=== PATIENT | female | born 1975 | race Caucasian/White ===

== ENCOUNTER 2017-12-05 11:43 | Outpatient (REF) | payer MEDICAID, SELFPAY ==
[2017-12-05 20:14] LABS: C-Reactive Protein 2.21 mg/dL (0.0-0.3)
[2017-12-05 20:38] LABS: Vitamin D 25 Total 25.4 ng/ml (30-100)
[2017-12-05 20:49] LABS: ESR 33 MM/HR (0-20)
[2017-12-08 17:13] LABS: ANA Interpretation Negative (NEGAT)
== END 2017-12-05 11:44 ==
LOC: NCHCN 11:43
PROVIDERS: PCP Family Medicine; Visit Provider Registered Nurse
DX: E55.9 Vitamin D deficiency, unspecified (principal); M25.50 Pain in unspecified joint
CPT/HCPCS: 82306; 85652; 86038; 86140

== ENCOUNTER 2018-11-17 12:30 | Outpatient (REF) | payer MEDICAID, SELFPAY ==
[2018-11-17 22:34] LABS: ALT 24 U/L (12-78); AST 16 U/L (15-37); Albumin 3.6 g/dL (3.4-5.0); Alkaline Phosphatase 96 U/L (46-116); BUN 16 mg/dL (7-18); Bilirubin, Total 0.2 mg/dL (0.2-1.0); CREATININE 0.75 mg/dL (0.55-1.02); Calcium 9.7 mg/dL (8.5-10.1); Chloride 106 mmol/L (98-107); Glucose 95 mg/dL (70-100); Potassium 4.7 mmol/L (3.5-5.1); Sodium 143 mmol/L (136-145); Total Protein 7.4 g/dL (6.4-8.2)
[2018-11-17 22:52] LABS: Hemoglobin A1C 5.7 % (4.5-6.2)
== END 2018-11-17 12:50 ==
LOC: NCHCN 12:30
PROVIDERS: PCP Family Medicine; Visit Provider Registered Nurse
DX: R73.03 Prediabetes (principal); F43.20 Adjustment disorder, unspecified; Z79.899 Other long term (current) drug therapy
CPT/HCPCS: 80053; 83036

== ENCOUNTER 2019-02-10 10:48 | Outpatient (REF) | payer MEDICAID, SELFPAY ==
[2019-02-12 13:54] LABS: Chlamydia Result Negative; GC Result Negative; Specimen Description URINE
== END 2019-02-10 11:08 ==
LOC: NCHCN 10:48
PROVIDERS: PCP Family Medicine; Visit Provider Registered Nurse
DX: F41.8 Other specified anxiety disorders (principal); E66.9 Obesity, unspecified; Z11.3 Encounter for screening for infections with a predominantly sexual mode of transmission
CPT/HCPCS: 87491; 87591

== ENCOUNTER 2020-12-28 12:12 | Outpatient (REF) | payer MEDICAID, SELFPAY ==
[2020-12-28 21:59] LABS: ALT 29 U/L (14-59); AST 21 U/L (15-37); Alkaline Phosphatase 126 U/L (46-116); Anion Gap 6.2 mmol/L (3-11); BUN 14 mg/dL (7-18); Bilirubin, Total 0.4 mg/dL (0.2-1.0); CO2 30.8 mmol/L (21.0-32.0); CREATININE 1.1 mg/dL (0.55-1.02); Calcium 9.1 mg/dL (8.5-10.1); Calculated LDL 137 mg/dL (<100); Chloride 104 mmol/L (98-107); Cholesterol 186 mg/dL (<200); Estimated GFR 53.47 (mL/min/1.73m2); Glucose 99 mg/dL (74-106); HDL Cholesterol 34 mg/dL (40-60); Potassium 4.5 mmol/L (3.5-5.1); Sodium 141 mmol/L (136-145); Total Protein 8.1 g/dL (6.4-8.2); Triglyceride 78 mg/dL (<150)
[2020-12-28 22:18] LABS: Vitamin D 25 Total 34.6 ng/mL (30-100)
== END 2020-12-28 12:13 | disposition home or self-care (01) ==
LOC: NCHCN 12:12
PROVIDERS: PCP Family Medicine; Visit Provider Registered Nurse
DX: E55.9 Vitamin D deficiency, unspecified (principal); E66.9 Obesity, unspecified; R73.03 Prediabetes; F41.8 Other specified anxiety disorders
CPT/HCPCS: 80053; 80061; 82306

== ENCOUNTER 2023-01-06 14:01 | Outpatient (REF) | payer MEDICAID, SELFPAY ==
[2023-01-06 15:31] LABS: Anion Gap 8.3 mmol/L (3-11); BUN 21 mg/dL (7-18); CO2 29.7 mmol/L (21.0-32.0); CREATININE 0.9 mg/dL (0.55-1.02); Calcium 10.1 mg/dL (8.5-10.1); Chloride 99 mmol/L (98-107); Estimated GFR 78.86 (mL/min/1.73m2); Glucose 107 mg/dL (74-106); Potassium 4.5 mmol/L (3.5-5.1); Sodium 137 mmol/L (136-145)
[2023-01-06 22:25] LABS: Rheumatoid Factor <8.6 IU/mL (<12.0)
[2023-01-07 09:58] LABS: Cyclic Citrullinated Peptide <2.5 U/mL (<5.0)
== END 2023-01-06 14:02 | disposition home or self-care (01) ==
LOC: NCHCN 14:01
PROVIDERS: PCP Family Medicine; Visit Provider Registered Nurse
DX: M13.89 Other specified arthritis, multiple sites (principal); M25.59 Pain in other specified joint; R94.4 Abnormal results of kidney function studies
CPT/HCPCS: 80048; 86200; 86431

== ENCOUNTER 2024-03-09 14:03 | Outpatient (REF) | payer MEDICAID, SELFPAY ==
[2024-03-09 14:41] LABS: Hemoglobin A1C 5.5 % (<5.7)
[2024-03-09 14:43] LABS: ALT 23 U/L (14-59); AST 26 U/L (15-37); Albumin 3.7 g/dL (3.4-5.0); Alkaline Phosphatase 136 U/L (46-116); Anion Gap 6.7 mmol/L (3-11); BUN 18 mg/dL (7-18); Bilirubin, Total 0.26 mg/dL (0.2-1.0); CO2 31.3 mmol/L (21.0-32.0); CREATININE 0.9 mg/dL (0.55-1.02); Calcium 9.4 mg/dL (8.5-10.1); Calculated LDL 118 mg/dL (<100); Chloride 105 mmol/L (98-107); Cholesterol 174 mg/dL (<200); Estimated GFR 78.37 (mL/min/1.73m2); Glucose 129 mg/dL (74-106); HDL Cholesterol 40 mg/dL (40-60); Potassium 4.5 mmol/L (3.5-5.1); Sodium 143 mmol/L (136-145); Total Protein 7.9 g/dL (6.4-8.2); Triglyceride 80 mg/dL (<150)
== END 2024-03-09 14:04 | disposition home or self-care (01) ==
LOC: NCHCN 14:03
PROVIDERS: PCP Family Medicine; Visit Provider Family Medicine
DX: E66.9 Obesity, unspecified (principal); R73.03 Prediabetes; Z13.220 Encounter for screening for lipoid disorders
CPT/HCPCS: 80053; 80061; 83036

== ENCOUNTER 2024-04-22 17:08 | Outpatient (REF) | payer MEDICAID, SELFPAY ==
--- NOTE | 2024-04-22 15:30 | PAPFT_PTH ---
PATIENT: Carmen Wallace LOC: [facility] U#:[id number] AGE/SX: 48/F ROOM: RE04/22/[address]: Lilian Farr : 1975 BED: DIS: 04/22/2024 SPEC #: [id number] RECD: 04/23/24 13:15 STATUS: WADE REEloy #: [id number] LEFTY: 04/22/24 15:[address]: Lilian Farr DEPT: [facility] Cytology RECD BY: Kristina Hayes ENTERED: 04/23/24 13:15 SP TYPE: PAPFT OTHR DR: Orlando Loomis Tissues: 1 - CX/ENDOCX FOR PAP SMEARS Procedures: PAP THIN PREP/[facility] Screening HPV DNA PROBE Comments: [id number] (HPV 16 & 18/45)
== END 2024-04-22 17:09 | disposition home or self-care (01) ==
LOC: NCHCN 17:08
PROVIDERS: PCP Family Medicine; Visit Provider Family Medicine
DX: Z11.51 Encounter for screening for human papillomavirus (HPV) (principal); Z01.419 Encounter for gynecological examination (general) (routine) without abnormal findings
CPT/HCPCS: 88142; 87624